=== PATIENT | male | born 1980 | race Caucasian/White ===

== ENCOUNTER 2018-06-08 22:45 | Emergency (ER) | payer OTHER ==
[~2018-06-08] VITALS: Ht 170.2 cm; Wt 88.9 kg
[~2018-06-08 22:45] MED LIST: AMOX500 PO; CYCL10 PO; HYDACE5 PO; LISI20 PO; LISINOPRIL; LOVA40 PO; LOVASTATIN; MELO7.5 PO; OXYACE5T PO; PENVK500 PO; PROM25 PO; RANI150 PO; RANITIDINE; RXOXYACE PO; RXPENVK250 PO; TRAZ100 PO; TRAZODONE; [UNRECOGNIZED DRUG - OTHER]
[2018-06-08] MEDS ORDERED: Cyclobenzaprine5 MG PO (23:33)
== END 2018-06-09 00:01 | disposition home or self-care (01) ==
LOC: ER 22:45
DX: R07.89 Other chest pain (principal); I10 Essential (primary) hypertension; E78.00 Pure hypercholesterolemia, unspecified; Z79.899 Other long term (current) drug therapy
CPT/HCPCS: 99283

== ENCOUNTER 2022-10-03 12:00 | Inpatient (IN) | payer OTHER ==
[~2022-10-03] VITALS: Ht 170.2 cm; Wt 94.0 kg
[~2022-10-03 12:00] MED LIST changes: +Cyclobenzaprine5 MG PO
[2022-10-03 12:31] LABS: BASOPHILS ABSOLUTE AUTO 0.07 K/mm3 (0.00-0.23); BASOPHILS PERCENT AUTO 0 % (0-2); EOSINOPHILS ABSOLUTE AUTO 0.06 K/mm3 (0.00-0.68); EOSINOPHILS PERCENT AUTO 0 % (0-6); Hematocrit 47.3 % (37.0-53.0); Hemoglobin 16.5 g/dL (13.5-17.5); IMMATURE GRAN ABSOLUTE AUTO 0.12 K/mm3 (0.00-0.10); IMMATURE GRAN PERCENT AUTO 1 % (0-1); LYMPHOCYTES ABSOLUTE AUTO 2.35 K/mm3 (0.84-5.20); LYMPHOCYTES PERCENT AUTO 13 % (21-46); MONOCYTES ABSOLUTE AUTO 1.61 K/mm3 (0.16-1.47); MONOCYTES PERCENT AUTO 9 % (4-13); Mean Corpuscular HGB 30.1 pg (26.0-34.0); Mean Corpuscular HGB Conc 34.9 g/dL (31.5-36.5); Mean Corpuscular Volume 86 fL (80-100); NEUTROPHILS ABSOLUTE AUTO 13.71 K/mm3 (1.96-9.15); NEUTROPHILS PERCENT AUTO 77 % (41-73); Platelet Count 374 K/mm3 (150-400); RDW Coefficient Variation 13.2 % (11.7-14.2); RDW Standard Deviation 41.3 fL (35.1-46.3); Red Blood Cell Count 5.48 M/mm3 (4.30-5.90); White Blood Cell Count 17.92 K/mm3 (4.00-11.30)
[2022-10-03 12:50] LABS: Albumin, Blood 4.2 g/dL (3.4-5.0); Albumin/Globulin Ratio 0.8 (0.8-1.8); Bilirubin, Total 0.5 mg/dL (0.1-1.0); Bun/Creatinine Ratio 6.5 (12.0-20.0); Calcium, Blood 9.3 mg/dL (8.5-10.1); Creatinine, Blood 4.45 mg/dL (0.60-1.20); Potassium, Blood 3.1 mmol/L (3.5-5.5); Total Protein, Blood 9.2 g/dL (6.4-8.2)
[2022-10-03] MEDS ORDERED: lisinopril 40 mg tab (13:30)
[2022-10-03] MEDS ORDERED: ATORVASTATIN CA20 MG PO (13:30)
[2022-10-03 14:52] LABS: Source, Urine Clean Catch
[2022-10-03 14:57] LABS: Appearance, Urine Hazy (Clear); Bilirubin, Urine Neg (Neg); Blood, Urine 3+ (Neg); Color, Urine Yellow (P-Yellow); Glucose Qualitative, Urine 1+ (Neg); Ketones, Urine Neg (Neg); Leukocyte Esterase, Urine Neg (Neg); Nitrite, Urine Neg (Neg); Protein, Urine 3+ (Neg); Urobilinogen, Urine NORM (Normal)
[2022-10-03 15:07] LABS: Amorphous Light (0-Heavy); Bacteria Many /hpf; Hyaline Casts 0-2 /lpf (0-2); Mucus Mod (0-Heavy); Red Blood Cells, Urine 0-2 /hpf (0-2); Squamous Epithelial Cells Rare /hpf (Few); Transitional Epithelial Cells Mod /hpf (0-Rare); White Blood Cells, Urine 0-2 /hpf (0-5)
--- NOTE | 2022-10-03 16:44 | NUR ---
ASSUMED PT CARE FROM ED AT 1600 PT ALERT AND ORIENTED X4 AND ABLE TO MAKE HIS NEEDS KNOWN. ARRIVES TO ICU D/T N/V AND DIARRHEA CAUSING HYPOTENSION WITH ACUTE KIDNEY FAILURE. NS INIATIED AT 150ML/HR PER ORDERS VIA 20G TO LEFT WRIST. BAHENA CATHETER IS PATENT AND DRAINING MINIMAL AMOUNTS OF URINE AT THIS TIME. BP'S ARE IMPROVING. TO BEDSIDE SHORTLY AFTER ARRIVAL TO ASSIST WITH PAST MEDICAL HX. PT STATES HE DRINK HURRICANE BEERS 1-2/NIGHT. WHEN EDUCATED ABOUT POSSIBLE WITHDRAWALS DURING HOSPITAL STAY THE INSISTED HE WOULD NOT EXPERIENCE THEM HE QUIT "COLD [place]URKEY BACK IN FEBRUARY" AND DIDN'T EXPERIENCE ANY WITHDRAWALS AT THAT TIME. PT CURRENTLY WATCHING TV; REQUESTED WATER AND APPLE JUICE. PT ABLE TO MAKE NEEDS KNOWN AND DEMONSTRATES PROPER USE OF CALL LIGHT.
--- NOTE | 2022-10-03 17:35 | NUR ---
END OF SHIFT SUMMARY BP REMAINS SOFT, BUT PT REMAINS ALERT AND ORIENTED AND ABLE TO MAKE NEEDS KNOWN. GOOD URINE OUTPUT FROM BAHENA CATHETER. PT HAS HAD ONE LOOSE STOOL THAT WAS SENT TO LAB PER ORDERS FOR GI PANEL. ATE MINIMAL AMOUNTS OF DINNER D/T HIS DISLIKE FOR VEGETABLES. WILL CONTINUE TO MONITOR UNTIL REPORT IS HANDED OFF TO ONCOMING RN.
[2022-10-03 18:54] LABS: Campylobacter Sp Detected (NOT DETECT)
[2022-10-03 18:55] LABS: Adenovirus F 40/41 Not Detected (NOT DETECT); Astrovirus Not Detected (NOT DETECT); Cryptosporidium Not Detected (NOT DETECT); Cyclospora Cayetanensis Not Detected (NOT DETECT); E. Coli O157 Not Detected (NOT DETECT); Entamoeba Histolytica Not Detected (NOT DETECT); Enteroaggregative E. coli-EAEC Not Detected (NOT DETECT); Enteropathogenic E. coli-EPEC Not Detected (NOT DETECT); Enterotoxigenic E. coli-ETEC Not Detected (NOT DETECT); Giardia Lamblia Not Detected (NOT DETECT); Norovirus GI/GII Not Detected (NOT DETECT); Plesiomonas Shigelloides Not Detected (NOT DETECT); Rotavirus A Not Detected (NOT DETECT); Salmonella Sp Not Detected (NOT DETECT); Sapovirus Not Detected (NOT DETECT); Shiga Toxin-prod E. coli-STEC Not Detected (NOT DETECT); Shigella/Enteroin E. coli-EIEC Not Detected (NOT DETECT); Vibrio Cholerae Not Detected (NOT DETECT); Vibrio Sp Not Detected (NOT DETECT); Yersinia Enterocolitica Not Detected (NOT DETECT)
--- NOTE | 2022-10-03 19:15 | NUR ---
ASSUMED CARE OF PT @1900. PT A&O X4, PLEASANT AND COOPERATIVE WITH CARE. RESTING COMFORTABLY. HR NSR 90'S, MAP >65, RR <20, SPO2 >92% ON RA. 20GA L WRIST INFUSING NS 150MLS/HR, 18GA R AC PATENT W/SALINE LOCK. BAHENA CATH IN PLACE AND DRAINING CLEAR YELLOW URINE TO GRAVITY.
--- NOTE | 2022-10-03 22:13 | NUR ---
PT SPO2 DROPPING INTO THE LOW 80'S WHILE SLEEPING. 02 2L VIA NC STARTED.
--- NOTE | 2022-10-04 00:45 | NUR ---
PHONE CALL TO DR HA RE: PT DESATING INTO LOW 80'S DURING SLEEP. OK'D TO PUT ON CPAP. RT NOTIFIED AND PT PUT ON CPAP OF 8 W/2L BLEED IN.
[2022-10-04 04:03] LABS: Bun/Creatinine Ratio 9.9 (12.0-20.0); Calcium, Blood 7.9 mg/dL (8.5-10.1); Creatinine, Blood 2.43 mg/dL (0.60-1.20); Potassium, Blood 3.2 mmol/L (3.5-5.5)
--- NOTE | 2022-10-04 04:56 | NUR ---
MADIHA PT'S LESLIE, GAVE UPDATE ON PT OVERNIGHT. WILL BE IN TO VISIT AROUND 1300 TODAY.
--- NOTE | 2022-10-04 05:45 | NUR ---
SUMMARY NO ACUTE EVENTS AND PT RESTED COMFORTABLY THROUGHOUT SHIFT. PT HAS KNOWN SLEEP APNEA AND WAS DESATING INTO LOW 80'S. 2L O2 VIA NC STARTED AND PT STILL WOULD DESAT. ORDER FOR CPAP OBTAINED AND STARTED. PT TOLERATED WELL. STABLE HR AND BP. PT IS A&O X4 AND ABLE TO MAKE HIS NEEDS KNOWN. INDEPENDENT IN ALL ADL'S. ONE SMALL BM THIS SHIFT. BAHENA PATENT AND DRAINING TO GRAVITY. 2000MLS OUTPUT THIS SHIFT. POTASSIUM 3.2 ON MORNING LABS, REPLACING PER ORDER.
--- NOTE | 2022-10-04 08:00 | NUR ---
INITIAL ASSESSMENT PATIENT ALERT AND ORIENTED X 4, AFEBRILE. NO COMPLAINTS OF PAIN. PATIENT SBA TO TOILET BECAUSE OF LINES/ CORDS. RESP WNL. SR, HR IN THE 90S. SBP LOW 100S TO 1-TEENS. ABDOMEN MILDLY DISTENDED WITH NORMOACTIVE BOWEL SOUNDS NOTED. BAHENA DRAINING YELLOW COLORED URINE. SKIN WNL. NS INFUSING AT 150 MLS/ HOUR. 40 MEQ KCL INFUSING FOR POTASSIUM OF 3.2 THIS AM. BED LOW, CALL LIGHT IN REACH. WILL CONTINUE TO MONITOR PATIENT FREQUENTLY THROUGHOUT SHIFT.
--- NOTE | 2022-10-04 12:38 | NUR ---
PATIENT TRANSFERRED TO MEDICAL FLOOR, ROOM 358. ALL BELONGINGS SENT WITH PATIENT.
--- NOTE | 2022-10-04 12:50 | NUR ---
TRANSFER FROM ICU REPORT RECEIVED FROM ICU. PT ARRIVED VIA W/C ACCOMPANIED BY BUSINESS SERVICES TECH. PT ALERT, COOPERATIVE. ABLE TO TRANSFER FROM W/C TO BED IND. IV FLUIDS INFUSING. PT HAS NO COMPLAINTS. HE HAS ALREADY ATE LUNCH. DENIES N/V, CRAMPS. HE DENIED THAT HIS RECTAL SKIN IS GETTING SORE FROM THE LOOSE STOOL. CONTINUE POC.
--- NOTE | 2022-10-04 17:42 | NUR ---
EVENING NOTE PT ALERT AND ORIENTED. PT HAS HAD 1 LIQUID GREEN BOWEL MOVEMENT. HIS WANTED TO SPEND THE NIGHT. PT TOLD HER TO GO HOME. IVF INFUSING AT 75 ML/HR. HE DENIES CRAMPING, VOMITING, ABD DISTENTION. HE IS STEADY ON HIS FEET. HE REQUESTED CHEESE AND PEPSI FOR A SNACK THIS AFTERNOON. TOLERATING WELL. HE HAS VOIDED ONCE THIS AFTERNOON PER URINAL. CONTINUE POC.
--- NOTE | 2022-10-05 04:14 | NUR ---
MEAT TEAM MEMBER SUMMARY: A&Ox4. PLEASANT AND COOPERATIVE WITH CARE. CALLS APPROPRIATELY AND IS ABLE TO COMMUNICATE NEEDS EFFECTIVELY. CONTINUES TO HAVE DIARRHEA AND CALLS FOR STAFF TO MEASURE mL FOR DOCUMENTATION. NO PRNs REQUESTED. CONTACT PRECAUTIONS FOR CAMPYLOBACTOR PER CDC PROTOCOL. NO ACUTE CONCERNS T/O THE NIGHT. LABS THIS AM. WILL REPORT TO ONCOMING RN.
[2022-10-05 06:30] LABS: Bun/Creatinine Ratio 12.2 (12.0-20.0); Calcium, Blood 8.5 mg/dL (8.5-10.1); Creatinine, Blood 1.31 mg/dL (0.60-1.20); Potassium, Blood 3.6 mmol/L (3.5-5.5)
--- NOTE | 2022-10-05 11:43 | NUR ---
Patient reports last BM was last night, and consistancy was solid/liquid. Patient denies pain/discomfort. MD ordered to discharge home. Reviewed discharge teaching with patient. removed IV. Patient left medical floor at 1130.
== END 2022-10-05 12:22 | disposition home or self-care (01) | DRG 683 ==
LOC: ER 12:00 → ERHOLD 14:24 → ICUE 15:57 → MEDS 10-04 12:39
PROVIDERS: Physician Assistant; ADMIT Internal Medicine
DX: N17.9 Acute kidney failure, unspecified (principal); A04.5 Campylobacter enteritis; E87.20 Acidosis, unspecified; R65.10 Systemic inflammatory response syndrome (SIRS) of non-infectious origin without acute organ dysfunction; F10.20 Alcohol dependence, uncomplicated; E87.6 Hypokalemia; I10 Essential (primary) hypertension; I95.9 Hypotension, unspecified; E78.00 Pure hypercholesterolemia, unspecified; M54.50 Low back pain, unspecified; G89.29 Other chronic pain; K21.9 Gastro-esophageal reflux disease without esophagitis; Z79.02 Long term (current) use of antithrombotics/antiplatelets; Z98.890 Other specified postprocedural states; Z79.811 Long term (current) use of aromatase inhibitors
CPT/HCPCS: 36415; 51702; 74177; 80048; 80053; 81001; 83605; 83690; 83735; 85025; 87086; 87507; 93005; 93010; 94660; 94760; 96361-59; 96365-59; 96375-59; 99285-25; A9270; J1644; J2405; J2543; J3480; J7030; J7050; J7120; Q9967

== ENCOUNTER 2024-07-12 20:36 | Emergency (ER) | payer OTHER ==
[~2024-07-12] VITALS: Ht 170.2 cm; Wt 99.8 kg
[~2024-07-12 20:36] MED LIST changes: +ATORVASTATIN CA20 MG PO; +lisinopril 40 mg tab
[2024-07-12 21:02] LABS: BASOPHILS ABSOLUTE AUTO 0.09 K/mm3 (0.00-0.23); BASOPHILS PERCENT AUTO 1 % (0-2); EOSINOPHILS ABSOLUTE AUTO 0.32 K/mm3 (0.00-0.68); EOSINOPHILS PERCENT AUTO 2 % (0-6); Hemoglobin 14.3 g/dL (13.5-17.5); IMMATURE GRAN ABSOLUTE AUTO 0.05 K/mm3 (0.00-0.10); IMMATURE GRAN PERCENT AUTO 0 % (0-1); LYMPHOCYTES ABSOLUTE AUTO 3.53 K/mm3 (0.84-5.20); LYMPHOCYTES PERCENT AUTO 25 % (21-46); MONOCYTES ABSOLUTE AUTO 0.78 K/mm3 (0.16-1.47); MONOCYTES PERCENT AUTO 6 % (4-13); Mean Corpuscular HGB Conc 34.9 g/dL (31.5-36.5); Mean Corpuscular Volume 86 fL (80-100); Mean Platelet Volume 9.9 fL (9.1-12.4); NEUTROPHILS ABSOLUTE AUTO 9.38 K/mm3 (1.96-9.15); NEUTROPHILS PERCENT AUTO 66 % (41-73); Platelet Count 337 K/mm3 (150-400); RDW Coefficient Variation 13.1 % (11.7-14.2); RDW Standard Deviation 41.1 fL (35.1-46.3); Red Blood Cell Count 4.76 M/mm3 (4.30-5.90); White Blood Cell Count 14.15 K/mm3 (4.00-11.30)
[2024-07-12 21:20] LABS: Albumin, Blood 3.7 g/dL (3.4-5.0); Albumin/Globulin Ratio 1.2 (0.8-1.8); Bilirubin, Total 0.7 mg/dL (0.1-1.0); Bun/Creatinine Ratio 9.7 (12.0-20.0); Calcium, Blood 7.8 mg/dL (8.5-10.1); Creatinine, Blood 0.72 mg/dL (0.60-1.20); Globulin, Blood 3.2 g/dL (2.2-4.0); Potassium, Blood 2.6 mmol/L (3.5-5.5); Total Protein, Blood 6.9 g/dL (6.4-8.2)
[2024-07-12] MEDS ORDERED: NS 1,000 ML IV SCH (21:45)
[2024-07-12 23:27] LABS: Influenza A, PCR NEGATIVE (NEGATIVE); Influenza B, PCR NEGATIVE (NEGATIVE); Resp Syncytial Virus, PCR NEGATIVE (NEGATIVE); SARS-Cov-2 (COVID-19) PCR, MMC NEGATIVE (NEGATIVE)
[2024-07-13 00:45] VITALS: BP 139/99
[2024-07-13] MEDS ORDERED: K-Dur20 MEQ PO (09:52)
[2024-07-13] MEDS ORDERED: AMOCLA875 PO (09:54)
[2024-07-13] MEDS ORDERED: K-TAB ER20 ME1 PO (09:57)
== END 2024-07-13 00:51 | disposition home or self-care (01) ==
LOC: ER 20:36
PROVIDERS: Physician Assistant; Student in an Organized Health Care Education/Training Program
DX: R53.83 Other fatigue (principal); Z79.899 Other long term (current) drug therapy; I10 Essential (primary) hypertension; E78.00 Pure hypercholesterolemia, unspecified
CPT/HCPCS: 0241U; 71046; 80053; 84484; 85025; 93005; 93010; 96360; 96361; 99285-25; J7030

== ENCOUNTER 2024-07-17 13:57 | Emergency (ER) | payer OTHER ==
[~2024-07-17] VITALS: Ht 170.2 cm; Wt 99.8 kg
[~2024-07-17 13:57] MED LIST changes: +AMOCLA875 PO; +K-Dur20 MEQ PO; +K-TAB ER20 ME1 PO
[2024-07-17 16:14] LABS: BASOPHILS ABSOLUTE AUTO 0.07 K/mm3 (0.00-0.23); BASOPHILS PERCENT AUTO 1 % (0-2); EOSINOPHILS ABSOLUTE AUTO 0.15 K/mm3 (0.00-0.68); EOSINOPHILS PERCENT AUTO 1 % (0-6); Hematocrit 43.9 % (37.0-53.0); Hemoglobin 15.3 g/dL (13.5-17.5); IMMATURE GRAN ABSOLUTE AUTO 0.06 K/mm3 (0.00-0.10); IMMATURE GRAN PERCENT AUTO 1 % (0-1); LYMPHOCYTES ABSOLUTE AUTO 2.77 K/mm3 (0.84-5.20); LYMPHOCYTES PERCENT AUTO 23 % (21-46); MONOCYTES PERCENT AUTO 5 % (4-13); Mean Corpuscular HGB 29.8 pg (26.0-34.0); Mean Corpuscular HGB Conc 34.9 g/dL (31.5-36.5); Mean Corpuscular Volume 86 fL (80-100); NEUTROPHILS ABSOLUTE AUTO 8.67 K/mm3 (1.96-9.15); NEUTROPHILS PERCENT AUTO 70 % (41-73); Platelet Count 343 K/mm3 (150-400); RDW Coefficient Variation 12.6 % (11.7-14.2); RDW Standard Deviation 39.4 fL (35.1-46.3); Red Blood Cell Count 5.13 M/mm3 (4.30-5.90); White Blood Cell Count 12.32 K/mm3 (4.00-11.30)
[2024-07-17 16:31] LABS: Albumin/Globulin Ratio 1.1 (0.8-1.8); Bilirubin, Total 0.9 mg/dL (0.1-1.0); Bun/Creatinine Ratio 8.4 (12.0-20.0); Calcium, Blood 8.3 mg/dL (8.5-10.1); Creatinine, Blood 0.72 mg/dL (0.60-1.20); Globulin, Blood 3.5 g/dL (2.2-4.0); Potassium, Blood 3.4 mmol/L (3.5-5.5); Total Protein, Blood 7.5 g/dL (6.4-8.2)
[2024-07-17 17:21] VITALS: BP 176/106
[2024-07-18] MEDS ORDERED: AMOX-CLAV 875-1 EAC5 PO ×2 (11:43)
[2024-07-19] MEDS ORDERED: VISBIOME 112.51 EACH PO ×2 (10:54)
[2024-07-19] MEDS ORDERED: LOSA25 PO ×2 (10:55)
[2024-07-19] MEDS ORDERED: AMOCLA875 PO ×2 (10:56)
== END 2024-07-17 18:54 | disposition left against medical advice (07) ==
LOC: ER 13:57
PROVIDERS: Emergency Medicine
DX: R53.1 Weakness (principal); Z53.21 Procedure and treatment not carried out due to patient leaving prior to being seen by health care provider
CPT/HCPCS: 80053; 85025; 99281

== ENCOUNTER 2024-07-18 08:45 | Observation (INO) | payer OTHER ==
[~2024-07-18] VITALS: Ht 160 cm; Wt 96.0 kg
[2024-07-18 10:00] LABS: BASOPHILS ABSOLUTE AUTO 0.05 K/mm3 (0.00-0.23); BASOPHILS PERCENT AUTO 0 % (0-2); EOSINOPHILS ABSOLUTE AUTO 0.12 K/mm3 (0.00-0.68); EOSINOPHILS PERCENT AUTO 1 % (0-6); Hematocrit 47.1 % (37.0-53.0); Hemoglobin 17.1 g/dL (13.5-17.5); IMMATURE GRAN ABSOLUTE AUTO 0.06 K/mm3 (0.00-0.10); IMMATURE GRAN PERCENT AUTO 1 % (0-1); LYMPHOCYTES ABSOLUTE AUTO 1.75 K/mm3 (0.84-5.20); LYMPHOCYTES PERCENT AUTO 15 % (21-46); MONOCYTES ABSOLUTE AUTO 0.51 K/mm3 (0.16-1.47); MONOCYTES PERCENT AUTO 4 % (4-13); Mean Corpuscular HGB 30.4 pg (26.0-34.0); Mean Corpuscular HGB Conc 36.3 g/dL (31.5-36.5); Mean Corpuscular Volume 84 fL (80-100); NEUTROPHILS ABSOLUTE AUTO 9.38 K/mm3 (1.96-9.15); NEUTROPHILS PERCENT AUTO 79 % (41-73); Platelet Count 357 K/mm3 (150-400); RDW Coefficient Variation 12.6 % (11.7-14.2); RDW Standard Deviation 38.5 fL (35.1-46.3); Red Blood Cell Count 5.62 M/mm3 (4.30-5.90); White Blood Cell Count 11.87 K/mm3 (4.00-11.30)
[2024-07-18 10:32] LABS: Albumin, Blood 4.4 g/dL (3.4-5.0); Albumin/Globulin Ratio 1.2 (0.8-1.8); Bilirubin, Total 1.2 mg/dL (0.1-1.0); Bun/Creatinine Ratio 9.4 (12.0-20.0); Creatinine, Blood 0.64 mg/dL (0.60-1.20); Globulin, Blood 3.6 g/dL (2.2-4.0); Potassium, Blood 3.8 mmol/L (3.5-5.5)
[2024-07-18] MEDS ORDERED: NS 1,000 ML IV SCH ×2 (11:00→13:00)
[2024-07-18] MEDS ORDERED: AMOX-CLAV 875-1 EAC5 PO (11:43)
[2024-07-18] MEDS ORDERED: HydrALAZINE HCl 20 MG / ML 1ML Vial IV PRN (12:10)
[2024-07-18] MEDS ORDERED: FLU VACC TS2024-25(6MOS UP)/PF 45 MCG/0.5 ML SYRINGE IM ONE (12:35)
[2024-07-18] MEDS ORDERED: Ondansetron 4 MG TAB PO PRN (12:35)
[2024-07-18 14:26] VITALS: BP 159/99
[2024-07-18 16:30] LABS: Adenovirus F 40/41 Not Detected (NOT DETECT); Astrovirus Not Detected (NOT DETECT); Campylobacter Sp Not Detected (NOT DETECT); Cryptosporidium Not Detected (NOT DETECT); Cyclospora Cayetanensis Not Detected (NOT DETECT); E. Coli O157 Not Detected (NOT DETECT); Entamoeba Histolytica Not Detected (NOT DETECT); Enteroaggregative E. coli-EAEC Not Detected (NOT DETECT); Enteropathogenic E. coli-EPEC Detected (NOT DETECT); Enterotoxigenic E. coli-ETEC Not Detected (NOT DETECT); Giardia Lamblia Not Detected (NOT DETECT); Norovirus GI/GII Not Detected (NOT DETECT); Plesiomonas Shigelloides Not Detected (NOT DETECT); Rotavirus A Not Detected (NOT DETECT); Salmonella Sp Not Detected (NOT DETECT); Shiga Toxin-prod E. coli-STEC Not Detected (NOT DETECT); Shigella/Enteroin E. coli-EIEC Not Detected (NOT DETECT); Vibrio Cholerae Not Detected (NOT DETECT); Vibrio Sp Not Detected (NOT DETECT); Yersinia Enterocolitica Not Detected (NOT DETECT)
[2024-07-18 16:31] LABS: Sapovirus Not Detected (NOT DETECT)
[2024-07-18] MEDS ORDERED: Amoxicillin/Clavulanate K 875 MG Tab PO SCH (17:00)
--- NOTE | 2024-07-18 19:11 | NUR ---
REPORT RECEIVED FROM ER, ADMISSION DONE, VSS PT HAS NO COMPLAINTS AND DOESNT KNOW WHY HE HAS TO STAY BUT IS COOPERATIVE WITH CARE, CALL LIGHT WITHIN REACH CAN MAKE NEEDS KNOWN.
[2024-07-18 19:59] VITALS: BP 163/83
[2024-07-18] MEDS ORDERED: Lactobacil 2-S.Thermo-Bifido 1 1 Cap PO SCH (21:00)
[2024-07-18] MEDS ORDERED: Acetaminophen 500 MG Tab PO PRN (23:35)
--- NOTE | 2024-07-19 04:51 | NUR ---
NOC SUMMARY- PT CONTINUES TO HAVE EPISODES OF DIARRHEA. PT IS EATING AND DRINKING WELL. PT IS AMBULATORY TO BATHROOM. PT GRIS DIZZINESS. PT HAD TOOTH ACHE AND TYLENOL WAS ORDERD. CALL LIGHT IN REACH
--- NOTE | 2024-07-19 04:58 | NUR ---
NOC SUMMARY- TOLERATING TF. PT REPOSITIONED. BAHENA DRAINING. FAMILY PRESENT. PT SPO2 >90% ON 3 LPM OXYMASK. CALL LIGHT IN REACH.
[2024-07-19 05:11] VITALS: BP 158/99
[2024-07-19 05:55] LABS: BASOPHILS ABSOLUTE AUTO 0.05 K/mm3 (0.00-0.23); BASOPHILS PERCENT AUTO 0 % (0-2); EOSINOPHILS ABSOLUTE AUTO 0.15 K/mm3 (0.00-0.68); EOSINOPHILS PERCENT AUTO 1 % (0-6); Hemoglobin 16.3 g/dL (13.5-17.5); IMMATURE GRAN ABSOLUTE AUTO 0.05 K/mm3 (0.00-0.10); IMMATURE GRAN PERCENT AUTO 0 % (0-1); LYMPHOCYTES ABSOLUTE AUTO 2.58 K/mm3 (0.84-5.20); LYMPHOCYTES PERCENT AUTO 22 % (21-46); MONOCYTES ABSOLUTE AUTO 0.84 K/mm3 (0.16-1.47); MONOCYTES PERCENT AUTO 7 % (4-13); Mean Corpuscular HGB 30.2 pg (26.0-34.0); Mean Corpuscular HGB Conc 34.7 g/dL (31.5-36.5); Mean Corpuscular Volume 87 fL (80-100); Mean Platelet Volume 10.4 fL (9.1-12.4); NEUTROPHILS ABSOLUTE AUTO 8.16 K/mm3 (1.96-9.15); NEUTROPHILS PERCENT AUTO 69 % (41-73); Platelet Count 362 K/mm3 (150-400); RDW Coefficient Variation 13.4 % (11.7-14.2); RDW Standard Deviation 42.5 fL (35.1-46.3); White Blood Cell Count 11.83 K/mm3 (4.00-11.30)
[2024-07-19 06:28] LABS: Albumin/Globulin Ratio 1.1 (0.8-1.8); Bilirubin, Total 0.6 mg/dL (0.1-1.0); Bun/Creatinine Ratio 10.2 (12.0-20.0); Calcium, Blood 9.1 mg/dL (8.5-10.1); Creatinine, Blood 0.69 mg/dL (0.60-1.20); Globulin, Blood 3.6 g/dL (2.2-4.0); Total Protein, Blood 7.6 g/dL (6.4-8.2)
[2024-07-19 08:04] VITALS: BP 154/103
[2024-07-19] MEDS ORDERED: Enoxaparin 40 MG/0.4 ML SYR SC SCH (09:00)
[2024-07-19] MEDS ORDERED: VISBIOME 112.51 EACH PO (10:54)
[2024-07-19] MEDS ORDERED: LOSA25 PO (10:55)
[2024-07-19] MEDS ORDERED: AMOCLA875 PO (10:56)
--- NOTE | 2024-07-19 11:31 | NUR ---
pt anxious to leave this am, dentaln hygenist into see pt and given recommendations. dr ridley in with pt and will write for discharge orders pt standing at door wanting to leave, eng to just sit and wait while eating snack. discharge orders received and implemented, pt said his primary care is at [facility], he will make appointment and follow discharge instructions
[2024-07-20 10:31] LABS: HEPATITIS A ANTIBODY, IGM Negative (Negative); HEPATITIS B CORE ANTIBODY, IGM Negative (Negative); HEPATITIS B SURFACE ANTIGEN Negative (Negative); HEPATITIS C AB CIA INTERP Negative (Negative); HEPATITIS C ANTIBODY CIA INDEX 0.09 IV
== END 2024-07-19 11:45 | disposition home or self-care (01) ==
LOC: ER 08:45 → MEDS 08:46
PROVIDERS: Physician Assistant; Student in an Organized Health Care Education/Training Program; ADMIT Internal Medicine
DX: E87.1 Hypo-osmolality and hyponatremia (principal); A04.0 Enteropathogenic Escherichia coli infection; I10 Essential (primary) hypertension; E78.00 Pure hypercholesterolemia, unspecified; Z79.899 Other long term (current) drug therapy
CPT/HCPCS: 36415; 80053; 80074; 83735; 84295; 85025; 87507; 96360; 96361; 96372; 99284-25; A9270; G0378; J1650; J7030

== ENCOUNTER 2024-10-25 07:38 | Emergency (ER) | payer OTHER ==
[~2024-10-25] VITALS: Ht 170.2 cm; Wt 99.8 kg
[~2024-10-25 07:38] MED LIST changes: +AMOX-CLAV 875-1 EAC5 PO; +CLIN300 PO; +LOSA25 PO; +ONDA4ODT MM; +VISBIOME 112.51 EACH PO
[2024-10-25] MEDS ORDERED: Amoxicillin/Clavulanate K 875 MG Tab PO ONE (09:25)
[2024-10-25] MEDS ORDERED: AMOCLA875 PO (09:48)
[2024-10-25 10:11] VITALS: BP 160/107
== END 2024-10-25 10:12 | disposition home or self-care (01) ==
LOC: ER 07:38
DX: S62.632A Displaced fracture of distal phalanx of right middle finger, initial encounter for closed fracture (principal); S61.256A Open bite of right little finger without damage to nail, initial encounter; I10 Essential (primary) hypertension; E78.00 Pure hypercholesterolemia, unspecified; W54.0XXA Bitten by dog, initial encounter
CPT/HCPCS: 12002; 29125; 73130; 99283-25; A9270